=== PATIENT | female | born 2000 | race Caucasian/White ===

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

== ENCOUNTER 2021-03-28 13:49 | Inpatient (IN) | payer BC, SELFPAY | END 2021-03-31 23:59 | disposition home or self-care (01) | DRG 768 | LOC: WP 02-25 13:50 | PROVIDERS: Admitting Provider Obstetrics & Gynecology; Visit Provider Obstetrics & Gynecology | DX: O32.8XX1 Maternal care for other malpresentation of fetus, fetus 1 (principal); Z37.2 Twins, both liveborn; D62 Acute posthemorrhagic anemia; O72.1 Other immediate postpartum hemorrhage; O14.14 Severe pre-eclampsia complicating childbirth; O70.1 Second degree perineal laceration during delivery; O99.02 Anemia complicating childbirth; O30.043 Twin pregnancy, dichorionic/diamniotic, third trimester; Z3A.37 37 weeks gestation of pregnancy | CPT/HCPCS: 59050; 82565; 82570; 84156; 84450; 84460; 84550; 85025; 85027; 85384; 85610; 86850; 86900; 86901; 86920; 99218; J7120; P9016; P9017; A4216; G0378; J1940; J2405 ==

== ENCOUNTER 2023-08-24 20:33 | Emergency (ER) | payer BC, SELFPAY ==
[2023-08-24 20:35] VITALS: BP 142/76; PULSE 79; RESP 16; TEMP 36.7; O2SAT 98; BMI 29.0
--- NOTE | 2023-08-24 21:03 | EDS_ITS ---
HPI History of Present Illness Chief Complaint: Chest Other [facility] Medical History Acute blood loss anemia Gestational HTN Home Medications ferrous sulfate 325 mg (65 mg iron) tablet (iron) 325 mg PO DAILY anemia 03/28/21 [History Last Taken 03/27/21 22:00] [id number]-tnt-Io-FA 1 mg tablet 1 tab PO DAILY PRN PRN Nausea And Vomiting 03/28/21 [History Last Taken 03/28/21 10:00] acetaminophen 500 mg tablet 1,000 mg (2 x 500 mg) PO Q6H PRN PRN Pain 1-10 Or Fever #0 tabs 04/01/21 [Rx Last Taken Unknown] naproxen 500 mg tablet 500 mg PO Q8H PRN PRN Pain Score 1-3 #0 tabs 04/01/21 [Rx Last Taken Unknown] Allergy/AdvReac Type Severity Reaction Status Date / Time No Known Allergies Allergy Verified 04/02/21 11:26 Surgical History History of surgery Social History Smoking Status: Never smoker EXAM Physical Exam Const Vital Signs: 08/24/23 20:35 08/24/23 20:39 08/24/23 22:34 Temperature 98.1 F Temperature Source Temporal Pulse Rate 79 76 Respiratory Rate 16 21 H Respiratory Effort Normal Blood Pressure 142/76 H 119/62 Blood Pressure Mean 98 81 Pulse Ox 98 98 Oxygen Delivery Method Room Air Room Air MDM MDM MDM Narrative Medical decision making narrative: HISTORY OF PRESENT ILLNESS: 23-year-old female presents with concern for preeclampsia. States she had preeclampsia in prior pregnancies. She notes she has had sharp pain in the right upper quadrant/right rib. Denies any trauma. The patient denies recent surgery in the last 4 weeks or immobilization in the last 3 days, denies previous diagnosis of DVT or PE, hemoptysis, unilateral leg swelling or malignancy with treatment the last 6 months or palliative. No estrogen use noted. Denies any vomiting. Denies any cough. REVIEW OF SYSTEMS: Pertinent positives: Abdominal pain, right upper quadrant pain, rib pain Pertinent negatives: Chest pain, shortness of breath, cough, PHYSICAL EXAM: Nursing triage notes reviewed, Vital signs reviewed Constitutional: please see mdm HENT: MMM Eyes: Pupils equal round and reactive to light, Extraocular muscles intact Neck: No stridor, no JVD, full neck ROM Lungs: Clear to auscultation, No wheezing or rales. No increased work of breathing, no conversational dyspnea, no accessory muscle use, no nasal flaring. No respiratory distress noted Heart: Regular rate and rhythm, No murmurs, No rubs and No gallops, 2+ distal pulses (radial, femoral, posterior tibial) in all extremities Abdomen: Soft, there is no tenderness, negative Feliz sign, rigidity, rebound or guarding, no obvious peritoneal signs, no palpable pulsatile abdominal masses, no auscultated abdominal bruit : No CVAT Extremities: No edema Neuro: No focal neurological deficits, cranial nerves II through XII intact, 5/5 strength in all extremities. Intact sensation to light touch in all extremities, 2+ reflexes bilateral patella tendons. Normal gait. No ataxia. Skin: No rash or lesions noted MEDICAL DECISION MAKING: Chief Complaint: Rib discomfort/chest discomfort External records reviewed: Imaging reviewed: No recent advanced imaging of the chest Factors affecting care: none Social determinants of health: none History obtained from others: no patient significant other Consults: none MDM Narrative: Patient was hemodynamically stable, afebrile, nontoxic-appearing. Patient notes required abdominal pain/rib pain. Denied any chest pain. She had clear lungs. She had no headache. She had no increased urination. I considered the following differential diagnosis: Preeclampsia, pneumonia, inflammatory change associated , pr acute cholecystitis, miscarriage Patient abdominal dam is benign she had a negative Feliz sign she is not jaundiced have a low suspicion for acute cholecystitis. Patient denied cough, fever she had no shortness of breath she had no full consolidation on lung exam or signs of rales. There is no swelling of her hands or feet Patient had no vaginal bleeding, passage of fluid or lower abdominal pain to suggest miscarriage or loss Patient with history of preeclampsia so in lieu of performing a broad lab workup I did choose to perform urinalysis to rule out proteinuria. There is no proteinuria noted on urinalysis. This lowers my suspicion for preeclampsia. I believe the patient is appropriate discharge home with close outpatient [employer]CHNICIAN follow-up for further evaluation and management of second trimester including continuous evaluation for preeclampsia. The patient and/or family, caregivers express understanding. The patient and/or family, caregivers agrees with the plan. Shared decision making: I will have a discussion with the patient and or visitors regarding risk/benefits of further testing or admission. They will be made aware of of the risk/benefits inherent in this decision they will be given the opportunity to voice understanding. Total critical care time today provided was at least 0 minutes. This excludes separately billable procedures. Critical care time (if documented) is secondary to the patient having high probability of clinically significant/life threatening deterioration in the patient's condition which required my urgent intervention. Impression: 1. Abdominal pain 2. Second trimester Dispo: Discharge This note was generated with Humanoid dictation software. It may contain incorrect words, spelling, and punctuation that were not noted in review of the chart prior to signing. Lab Data Labs: Laboratory Results - last 24 hr 08/24/23 22:20 Urine Color Yellow Urine Clarity Sl. Cloudy Urine pH 6.5 Ur Specific [place] 1.020 Urine Protein Negative Urine Glucose (UA) Normal Urine Ketones 150 A* Urine Occult Blood Negative Urine Nitrite Negative Urine Bilirubin Negative Urine Urobilinogen Normal Ur Leukocyte Esterase Negative Urine RBC 0 SEEN Urine WBC 0 SEEN Ur Squamous Epith Cells 5-10 SEEN Urine Bacteria 0 SEEN Urine Mucus 0 SEEN Discharge Plan Triage Chief Complaint: Chest Other ED Provider: Julio Mercer Dx/Rx/DC Orders Instructions: Understanding Preeclampsia, 2nd Trimester Changes Prescriptions: No Action ferrous sulfate [iron] 325 mg (65 mg iron) Tablet 325 mg PO DAILY [id number] 1 mg Tablet 1 tab PO DAILY PRN PRN (Reason: Nausea And Vomiting) acetaminophen 500 mg Tablet 1,000 mg PO Q6H PRN PRN (Reason: Pain 1-10 Or Fever) Qty: 0 0RF naproxen 500 mg Tablet 500 mg PO Q8H PRN PRN (Reason: Pain Score 1-3) Qty: 0 0RF Primary Care Provider: Care Physician,No Primary Referrals: Paula Maharaj MD [Med Staff - Active Staff] - Activity Restrictions/Additional Instructions: Thank you for trusting us with your care today! Please take Tylenol (2 pills, 650 mg) every 6 hours as needed for pain and fever control. Please return to the emergency department if your symptoms change or worsen. Specifically develop blurry vision, elevated blood pressure, severe pain, swelling in your hands or feet. Please follow with your primary care physician for further outpatient evaluation and management. Disposition Disposition: Home, Self Care
--- NOTE | 2023-08-24 21:31 | EKG12_ITS ---
Test Reason : CHEST OTHER Blood Pressure : / mmHG Vent. Rate : 081 BPM Atrial Rate : 081 BPM P-R Int : 164 ms QRS Dur : 084 ms QT Int : 402 ms P-R-T Axes : 044 063 029 degrees QTc Int : 466 ms Normal sinus rhythm Normal ECG Confirmed by ANIL AVILA, MAU ([id number]), publication editor YUVAL AGUAYO ([id number]) on 08/26/2023 6:56:39 AM Referred By: SHAHNAZ Confirmed By:MAU MA MD
[2023-08-24] MEDS: Acetaminophen 325 MG Tablet 650 MG PO (22:23)
[2023-08-24 22:32] LABS: Bacteria 0 SEEN /hpf (None Seen); Mucous, Urine 0 SEEN /hpf (<or=2+); Red Blood Cells-Urine 0 SEEN /hpf (0-5); White Blood Cells 0 SEEN /hpf (0-5)
[2023-08-24 22:34] VITALS: BP 119/62; PULSE 76; RESP 21; O2SAT 98
[2023-08-24 23:18] LABS: Color, Urine Yellow (Yellow); Glucose, Dipstick Normal (Normal); Leukocyte Esterase-Dipstick Negative /ul (Negative); Nitrite-Dipstick Negative (Negative); Occult Blood-Urine Negative /ul (Negative); Protein-Dipstick Negative (Negative); Urine Bilirubin Dipstick Negative (Negative); Urine Clarity Sl. Cloudy (Clear); Urine Urobilinogen Normal (Normal); Urine pH 6.5 (5.0 - 8.0)
[2023-08-24 23:46] LABS: Ketone-Dipstick 150 mg/dl (Negative)
[2023-08-24 23:47] LABS: Squamous Epithelial Cells - UA 5-10 SEEN /hpf (5-10)
[2023-08-25 00:13] VITALS: BP 97/54; PULSE 76; RESP 16; TEMP 36.5; O2SAT 98
== END 2023-08-25 00:15 | disposition home or self-care (01) ==
PROVIDERS: Emergency Provider Emergency Medicine; Visit Provider Emergency Medicine
DX: O26.892 Other specified pregnancy related conditions, second trimester (principal); R10.11 Right upper quadrant pain; R07.81 Pleurodynia; Z3A.00 Weeks of gestation of pregnancy not specified
CPT/HCPCS: 81001; 93005; 99282; J7050

== ENCOUNTER 2024-01-05 14:13 | Outpatient (CLI) | payer BC, SELFPAY ==
[2024-01-05] VITALS (13 sets, daily range): BP systolic 127–130; BP diastolic 61–64; PULSE 72–109; RESP 18; TEMP 36.6; O2SAT 91–100; BMI 35.1
[2024-01-05] MEDS: Lactated Ringers 1,000 ML 999 ML IV ×2 (15:20→20:38)
--- NOTE | 2024-01-05 15:45 | US_ITS ---
STUDY: ABDOMINAL ULTRASOUND - RIGHT UPPER QUADRANT REASON FOR VISIT: Female, 23 years old hyperemesis -- Right upper quadrant TECHNIQUE: Ultrasound evaluation of the right upper quadrant was performed with real-time and static acharya-scale imaging. TECHNICAL QUALITY: Adequate. COMPARISON: None. FINDINGS: Liver: The liver measures 17.6 cm. There is normal echogenicity of the liver. The bile ducts are within normal limits. There is hepatic color flow. The direction of portal flow is hepatopetal. There is no demonstrated mass lesion. Gallbladder: Normal distended gallbladder. The gallbladder wall measures 2.3 mm. There is a negative sonographic Feliz''s sign. There is no pericholecystic fluid. There are no gallstones. Common Bile Duct (C.B.D.): The common bile duct measures 2.8 mm. Pancreas: Normal size of the head, body and tail of the pancreas. There is normal echogenicity of the pancreas. There is no demonstrated pancreatic mass or cyst. Right Kidney: Normal size of the right kidney. The right kidney measures 12.4 cm. Normal renal cortex. The right cortex measures 1.3 cm. There is no demonstrated renal mass or cyst. There is moderate right hydronephrosis. US/Abdomen Limited IMPRESSION: Moderate right hydronephrosis Electronically Signed: Filiberto Fletcher MD at 18:07 EDT ,
[2024-01-05] MEDS: Ondansetron 4 MG/2 ML Vial IV (15:56)
[2024-01-05 15:57] LABS: Absolute Lymphocyte Count 1.18 X10^3/uL (0.83-4.51); Absolute Neutrophil Count 11.4 X10^3/uL (2.0-7.7); Basophil# 0.04 X10^3/uL; Basophil% 0.3 % (0-1); Eosinophil# 0.01 X10^3/uL; Eosinophils% 0.1 % (0-5); Hematocrit 35.5 % (37-47); Hemoglobin 11.6 g/dL (12.0-15.0); Lymphocyte # 1.18 X10^3/ul (0.83-4.51); Lymphocyte % 8.9 % (19-41); Mean Corp Hgb Conc 32.7 g/dL (32-36); Mean Corpuscular Hgb 29.2 pg (27.0-32.0); Mean Corpuscular Volume 89.4 fL (81-99); Mean Platelet Vol. 9.3 fl (6.2-12.0); Monocyte# 0.56 X10^3/uL; Monocyte% 4.2 % (0-10); NRBC Flagged by Analyzer 0 % (0-5); Neutrophil # 11.42 X10^3/uL (2.7-7.7); Neutrophil % 85.6 % (47-70); Platelet Count 213 K/mm3 (150-450); RBC Distribution Width CV 14.8 % (11.6-14.6); RBC Distribution Width SD 48.2 fl (35.1-43.9); Red Blood Count 3.97 M/mm3 (4.2-5.4); White Blood Count 13.3 K/mm3 (4.4-11.0)
[2024-01-05] MEDS: Betamethasone/Betamethasone 30 MG/5 ML Vial 12 MG IM (15:59)
--- NOTE | 2024-01-05 16:04 | HP.PCM.OB_ITS ---
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 She has not had any care except through her wardrobe supervisor. Her history is significant for a set of twins followed by a miscarriage followed by a okeefe delivery at term. She denies any labor with her okeefe . She indicates that she began having some contractions and pain several hours ago and they have progressively gotten worse. Nausea and vomiting started early this morning and has progressively gotten worse as well. Patient has had intermittent right upper quadrant pain during her and has also had bouts of nausea with this pain. She was seen in the emergency room and may for similar but less significant pain but no right upper quadrant ultrasound was done at that time. She has not had right upper quadrant ultrasound done during the . She did have an ultrasound done at about 20 weeks gestation which indicated that she may have been 1 week further long but this was otherwise consistent with her current dating. Bedside ultrasound also shows her to be approximately 37 to 38 weeks gestation by BPD and femur length. Baby is cephalic, ZBIGNIEW is normal, good movement is noted. Three-vessel cord is seen. Patient is noted in bed to be vomiting about every 3 to 5 minutes but no uterine contractions are palpated. No vaginal bleeding is noted. heart tones are reactive. [facility] Medical History (Updated 01/05/24 @ 16:[address] Bird Velez MD) Acute blood loss anemia Gestational HTN Home Medications ?Medication ?Instructions ?Recorded ?Last Taken ?Type ferrous sulfate 325 mg (65 mg 325 mg PO DAILY anemia 03/28/21 03/27/21 22:00 History iron) tablet (iron) [id number] 1 mg 1 tab PO DAILY PRN PRN Nausea And 03/28/21 03/28/21 10:00 History tablet Vomiting acetaminophen 500 mg tablet 1,000 mg (2 x 500 mg) PO Q6H PRN 04/01/21 Unknown Rx PRN Pain 1-10 Or Fever #0 tabs naproxen 500 mg tablet 500 mg PO Q8H PRN PRN Pain Score 04/01/21 Unknown Rx 1-3 #0 tabs Allergy/AdvReac Type Severity Reaction Status Date / Time No Known Allergies Allergy Verified 01/05/24 14:47 Surgical History History of surgery Social History Smoking Status: Never smoker History 1 Elective abortions Hx Para 0 Spontaneous abortions Hx # Term Pregnancies Ectopic pregnancies Hx # Pregnancies Multiple births # of living children 2 ROS Cardiovascular Cardiovascular: Reports systems reviewed and no addt'l complaints, except as documented Respiratory/Chest Respiratory/Chest: Reports systems reviewed and no addt'l complaints, except as documented Gastrointestinal Gastrointestinal: Reports change in bowel habits, constipation and diarrhea Genitourinary Genitourinary: Reports systems reviewed and no addt'l complaints, except as documented Musculoskeletal Musculoskeletal: Reports systems reviewed and no addt'l complaints, except as documented Neurologic Neurologic: Reports systems reviewed and no addt'l complaints, except as documen jose Vital Signs Vital Signs Vital Signs: 01/05/24 14:53 01/05/24 14:53 01/05/24 14:58 Pulse Rate 97 95 Blood Pressure BP Systolic BP Diastolic Pulse Ox 99 01/05/24 14:58 01/05/24 15:03 01/05/24 15:03 Pulse Rate 98 Blood Pressure BP Systolic BP Diastolic Pulse Ox 100 97 01/05/24 15:08 01/05/24 15:08 01/05/24 15:14 Pulse Rate 109 H 91 Blood Pressure BP Systolic BP Diastolic Pulse Ox 98 01/05/24 15:14 01/05/24 15:19 01/05/24 15:19 Pulse Rate 94 Blood Pressure BP Systolic BP Diastolic Pulse Ox 97 99 01/05/24 15:24 01/05/24 15:24 01/05/24 15:29 Pulse Rate 72 88 Blood Pressure BP Systolic BP Diastolic Pulse Ox 99 01/05/24 15:29 01/05/24 15:34 01/05/24 15:34 Pulse Rate 87 Blood Pressure BP Systolic BP Diastolic Pulse Ox 100 100 01/05/24 15:36 01/05/24 15:36 01/05/24 15:36 Pulse Rate 91 Blood Pressure 130/64 H BP Systolic 130 BP Diastolic 64 Pulse Ox 91 01/05/24 15:39 01/05/24 15:39 01/05/24 15:44 Pulse Rate 88 93 Blood Pressure BP Systolic BP Diastolic Pulse Ox 98 01/05/24 15:44 Pulse Rate Blood Pressure BP Systolic BP Diastolic Pulse Ox 99 Weight Weight: 224 lb 3.362 oz Body Mass Index (BMI) 35.1 Physical Exam Const oriented x3 General Appearance: cooperative and in distress Positive for moderate (From nausea and vomiting) Exam Limitations: no limitations HEENT normocephalic Neck full ROM Resp normal respiratory effort, no retractions and clear to auscultation bilaterally Cardio regular rate, regular rhythm, no murmurs and no gallops GI GI Narrative: Abdomen is gravid and appropriate for gestational age size. Good bowel sounds are present. Tenderness in the right upper quadrant over the gallbladder. Ribs not tender. Uterus not tender. Narrative: Cervix is 2/80/-2 to -3. No blood is noted in the vagina. Membranes are intact. Back/Spine no CVA tenderness Extremity normal to inspection, full ROM, no clubbing, cyanosis or edema, no calf tend erness and no pedal edema Neuro moves all extremities and deep tendon reflexes 2+ bilaterally Motor Exam: clonus absent Psych mental status grossly normal, affect normal, speech normal and activity/motor behavior normal Labs Labs Labs: Blood Type A POSITIVE Antibody Screen NEGATIVE Hct 35.5 % (37-47) L Hgb 11.6 g/dL (12.0-15.0) L Obstetrics Ultrasound Syphilis Total Ab Pending Rubella IgG Antibody Pending Hep Bs Antigen Pending Hepatitis C Antibody Pending HIV 1&2 Antibody Pending Assessment & Plan (1) labor in third trimester: (2) Right upper quadrant abdominal pain affecting : (3) Severe nausea and vomiting: COMMENT: Likely gallbladder etiology causing pain and severe nausea and vomiting at 35 to 36 weeks gestation. Awaiting labs and right upper quadrant ultrasound. Will check urine analysis when patient is able to void. Will consult general surgery for assistance in management. Will give Zofran to help with nausea and vomiting and low-dose Dilaudid to assist with pain until patient can be evaluated by general surgery. Will start penicillin group B strep prophylaxis if cervix changes but this does not seem to be progressive labor at this point. Will also give Celestone given possibility of needing early delivery.
[2024-01-05] MEDS: HYDROmorphone 0.5 MG/0.5 ML SYRINGE IV (16:41)
[2024-01-05] MEDS: Lactated Ringers 1,000 ML 150 ML IV (16:50)
[2024-01-05 16:58] LABS: Anion Gap 12 (5-15); BUN 10 mg/dL (7-18); BUN/Creat Ratio 20.7 RATIO (10-20); Calcium,Total 9.4 mg/dL (8.5-10.1); Chloride 105 mmol/L (98-107); Creatinine, Serum 0.48 mg/dL (0.55-1.02); EST Glomerular Filtration Rate 170 mL/min (>60); Est Glom Filt Rate - Afr Amer 206 mL/min (>60); Estimated Creatinine Clearance 225.33 ml/min; Glucose 91 mg/dL (74-106); Potassium 3.7 mmol/L (3.5-5.1); Sodium Level 137 mmol/L (136-145)
[2024-01-05 17:03] LABS: Red Blood Cells-Urine 0 SEEN /hpf (0-5)
[2024-01-05 17:11] LABS: Color, Urine Yellow (Yellow); Glucose, Dipstick Normal (Normal); Leukocyte Esterase-Dipstick 25 /ul (Negative); Nitrite-Dipstick Negative (Negative); Occult Blood-Urine Negative /ul (Negative); Protein-Dipstick 30 mg/dl (Negative); Specific Gravity, Urine 1.025 (1.002-1.030); Urine Bilirubin Dipstick Negative (Negative); Urine Clarity Clear (Clear); Urine Urobilinogen Normal (Normal)
[2024-01-05 17:23] LABS: Ketone-Dipstick 150 mg/dl (Negative)
[2024-01-05 17:29] LABS: Bacteria 2+ /hpf (None Seen); Mucous, Urine 1+ /hpf (<or=2+); Squamous Epithelial Cells - UA 5-10 SEEN /hpf (5-10); White Blood Cells 0-5 SEEN /hpf (0-5)
[2024-01-05 17:33] LABS: Hepatitis B Surface Antigen Non-Reactive (Nonreactive); Hepatitis C Antibody Non-Reactive (Nonreactive)
[2024-01-05 17:54] LABS: HIV - WCH Non-Reactive (Nonreactive); Rubella IgG Reactive (Nonreactive); Syphilis Antibodies Non-reactive
[2024-01-05] MEDS: Cefazolin 2 GM in 0.9% Normal Saline (100mL Bag) 100 ML IV (18:47)
--- NOTE | 2024-01-05 21:22 | EX.PCM.CON.S ---
Assessment & Plan Assessment/Plan (1) Right upper quadrant abdominal pain affecting : PLAN: This is a 23-year-old, otherwise healthy, female who presents at 36 weeks gestation with acute onset right upper quadrant pain with intractable nausea and vomiting. Symptoms have been reportedly persistent for about the last 6 hours plus. Patient also shares history of similar symptoms throughout her . Although she was formally told this was unlikely her gallbladder (by prior emergency room physician) she settled on this is a likely culprit for her symptoms. While the region of distribution of her discomfort as reported in her history is consistent, the remainder of her workup and exam point against this being a case of cholecystitis. Evidence against cholecystitis includes absence of gallstones, absence of secondary signs of gallbladder inflammation, and negative Feliz sign. I did concede that perhaps she suffers from gallbladder dysfunction (biliary dyskinesia), but stated this would require HIDA imaging to assess and would not ultimately be a risk to her . Thus, I recommended broadening the differential and if her symptoms persist I would be happy to see her as an outpatient with plans for completion of hide imaging to assess the function of her gallbladder. The above impression was related to patient's primary obstetrics team. Thank you for the consultation. Sherwin Arvizu MD General Surgery Endocrine Surgery Pager: [facility] [address] [place] [address], [address] [place] [address] Office: [phone] HPI Consult Data Date of Consult: 01/05/24 HPI Narrative Reason for Consultation: Right upper quadrant pain with concern for gallbladder disease HPI Narrative: JOE MURRAY, is a 23 F who presents to [facility] at 36 weeks gestation with her fourth for complaints of generalized abdominal pain that became more localized in right upper quadrant and was associated with intractable nausea and vomiting. Patient shares that she presented after experiencing contractions this morning that developed into the above symptoms. She declares that she has had previous symptoms of similar character throughout this ?including a particularly severe episode at 15 to 16 weeks gestation that prompted her to go to the emergency department. She shares that while she was there she was told by emergency medicine that her presentation was not consistent with gallbladder problems, however, upon returning home she discussed her symptoms with a friend who required cholecystectomy and she found her symptoms to match what was described. What is apparent confirmation she reports that she has been on a gallbladder remedy ever since. Patient confirms that she is healthy and carries no formal diagnoses. She also denies any prior abdominal surgery. Workup to date includes CBC that shows mild leukocytosis of 13,000. Imaging was performed with right upper quadrant ultrasound that showed 2.3 mm gallbladder wall, no pericholecystic fluid, negative sonographic Feliz sign, and no gallstones. Incidentally, radiology did note the presence of some moderate right hydronephrosis. [facility] Medical History (Updated 01/05/24 @ 16:[address] Bird Velez MD) Acute blood loss anemia Gestational HTN Home Medications ?Medication ?Instructions ?Recorded ?Last Taken ?Type [id number]-[id number] 1 mg 1 tab PO DAILY PRN PRN Nausea And 03/28/21 01/04/24 08:00 History tablet Vomiting 1 TAB Allergy/AdvReac Type Severity Reaction Status Date / Time No Known Allergies Allergy Verified 01/05/24 14:47 Surgical History History of surgery Social History Smoking Status: Never smoker Physical Exam Const alert, oriented x3 and no apparent distress General Appearance: cooperative Resp normal respiratory effort GI GI Narrative: Abdominal distention secondary to gravid uterus Inspection: abdominal distention Palpation: tender RUQ (Mild) and other (Negative Feliz sign); Negative for guarding Lab / Micro Data 01/05/24 15:20 01/05/24 15:20 Labs: Laboratory Results - last 24 hr 01/05/24 15:20: WBC 13.3 H, RBC 3.97 L, Hgb 11.6 L, Hct 35.5 L, MCV 89.4, MCH 29.2, MCHC 32.7, RDW Std Deviation 48.2 H, RDW Coeff of Tristan 14.8 H, Plt Count 213, MPV 9.3, Immature Gran % (Auto) 0.900, Neut % (Auto) 85.6 H, Lymph % (Auto) 8.9 L, [place] % (Auto) 4.2, Eos % (Auto) 0.1, Baso % (Auto) 0.3, Absolute Neuts (auto) 11.4 H, Absolute Lymphs (auto) 1.18, Nucleated RBC % 0, Sodium 137, Potassium 3.7, Chloride 105, Carbon Dioxide 20.0 L, Anion Gap 12, BUN 10, Creatinine 0.48 L, Estim Creat Clear Calc 225.33, Est GFR (MDRD) Af Amer 206, Est GFR (MDRD) Non-Af 170, BUN/Creatinine Ratio 20.7 H, Glucose 91, Calcium 9.4, Syphilis Total Ab Non-reactive, Hep Bs Antigen Non-Reactive, Hepatitis C Antibody Non-Reactive, HIV 1&2 Antibody Non-Reactive, Rubella IgG Antibody Reactive, Blood Type A POSITIVE, Antibody Screen NEGATIVE 01/05/24 16:50: Urine Color Yellow, Urine Clarity Clear, Urine pH 6.0, Ur Specific [place] 1.025, Urine Protein 30 H, Urine Glucose (UA) Normal, Urine Ketones 150 A*, Urine Occult Blood Negative, Urine Nitrite Negative, Urine Bilirubin Negative, Urine Urobilinogen Normal, Ur Leukocyte Esterase 25 H, Urine RBC 0 SEEN, Urine WBC 0-5 SEEN, Ur Squamous Epith Cells 5-10 SEEN, Urine Bacteria 2+, Urine Mucus 1+ Micro: Microbiology 01/05/24 16:50 Urine, Clean Catch Chlamydia/Neisseria (PCR) - Final 01/05/24 15:25 Genital vaginal Group B Streptococcus (PCR) - Preliminary Imaging Radiology Impression Abdomen Ultrasound 01/05/24 15:45 IMPRESSION: Moderate right hydronephrosis Electronically Signed: Filiberto Fletcher MD at 18:07 EDT , Charges/Coding Visit Charges OBSV E&M: [id number] Observ/hosp same date L2
--- NOTE | 2024-01-05 22:43 | OB.TRI.HP_ITS ---
HPI - General General Chief Complaint: Contractions, Nausea, Right Upper Quadrant Pain HPI Narrative Patient workup for gallbladder issues was negative. Appreciate surgical consultation. Moderate right hydro ureter was noted. On labor and delivery over time the patient's nausea vomiting and pain diminished and she declared that she was wanting to leave the hospital at approximately 10:30 PM. Her right upper quadrant pain resolved with IV fluids, IV Zofran, IV Dilaudid and IV Pepci d. She received approximately 2 L of saline solution IV. She also received Ancef 2 g IV due to some bacteria noted on urine analysis. Patient plans to return to the birthing center and follow-up with her telecine operator. She was advised against leaving labor and delivery because she is 35 to 36 weeks gestation and her cervix changed from 1-2 to 3-4 cm over the past 4-5 hours with mild to moderate contractions noted. Patient left against our medical advice and plans to follow-up with her telecine operator for possible delivery when she is in more active labor. [facility] Medical History (Updated 01/05/24 @ 16:[address] Bird Velez MD) Acute blood loss anemia Gestational HTN Home Medications ?Medication ?Instructions ?Recorded ?Last Taken ?Type yomgekhs-fqx-Az-FA 1 mg 1 tab PO DAILY PRN PRN Nausea And 03/28/21 01/04/24 08:00 History tablet Vomiting 1 TAB Allergy/AdvReac Type Severity Reaction Status Date / Time No Known Allergies Allergy Verified 01/05/24 14:47 Surgical History History of surgery Social History Smoking Status: Never smoker History 1 Elective abortions Hx Para 0 Spontaneous abortions Hx # Term Pregnancies Ectopic pregnancies Hx # Pregnancies Multiple births # of living children 2
== END 2024-01-05 22:25 | disposition home or self-care (01) ==
LOC: WPOUT 14:39 → WP 14:41
PROVIDERS: Visit Provider Obstetrics & Gynecology
DX: O60.03 Preterm labor without delivery, third trimester (principal); O99.891 Other specified diseases and conditions complicating pregnancy; O21.2 Late vomiting of pregnancy; R10.11 Right upper quadrant pain; Z3A.35 35 weeks gestation of pregnancy
CPT/HCPCS: 96365; 96366 ×8; 96367; 96375 ×2; 96376 ×2; 36415; 59025; 76705; 76815; 80048; 81001; 85025; 86703; 86762; 86780; 86803; 86850; 86900; 86901; 87081; 87086; 87088; 87340; 87491; 87591; 87653; 96372; 99221; J7120; G0378; J0702; J2405